=== PATIENT | male | born 1945 | race Caucasian/White ===

== ENCOUNTER 2016-10-25 09:52 | Emergency (ER) | payer MEDICARE, OTHER ==
[~2016-10-25 09:52] MED LIST: HYDR-3533 PO; IBUP600T26 PO; TAMS0.4C67 PO
[2016-10-25 09:58] VITALS: BP 117/93; PULSE 86; RESP 18; TEMP 97.8; O2SAT 97
--- NOTE | 2016-10-25 10:55 | PD ---
HPI Chief Complaint: Eye Problems/Injury Time Seen by Provider: 10:23 Travel History International Travel<30 days: No Contact w/Intl Traveler<30days: No Traveled to known affect area: No History of Present Illness HPI This patient complains of blurry vision in his left eye for 3 days. He describes a haze or film over his left visual field. He is not having eye pain and had no eye injury. His right vision is normal. He denies muscle weakness or sensory loss or speech slurring or any other neurologic complaint. Symptoms severity is mild to moderate. No alleviating factors. PFSH Past Medical History Diabetes: No Diminished Hearing: Yes (LT.EAR WORSE THAN RT.) Kidney Stones: Yes Immunizations Current: No Tetanus Vaccination: > 5 Years Influenza Vaccination: No Past Surgical History Neurologic Surgery: Yes (SKULL FX REPAIR) Other Surgery: Yes (HEMORHOID SURG.) Social History Alcohol Use: Yes (RARE) Tobacco Use: No (QUIT 1982 SMOKED FOR 30 YEARS ) Substance Use: No Allergies-Medications (Allergen,Severity, Reaction): Coded Allergies: No Known Allergies (Verified , 10/25/16) Uncoded Allergies: SOME TYPES OF CHEESES (Allergy, Mild, 06/10/08) Reported Meds & Prescriptions Reported Meds & Active Scripts Active No Active Prescriptions or Reported Medications Review of Systems General / Constitutional: No: Fever Eyes: Positive: Blurred Vision, Visual changes HENT: No: Headaches Cardiovascular: No: Chest Pain or Discomfort Respiratory: No: Cough Gastrointestinal: No: Vomiting Genitourinary: No: Dysuria Musculoskeletal: No: Arthralgias Physical Exam Narrative GENERAL: Well-nourished, well-developed patient. SKIN: Focused skin assessment warm/dry. HEAD: Normocephalic. EYES: No scleral icterus. No injection or drainage. Pupils are is normal. They 're equal round and reactive. Extraocular muscles are intact. Visual blankenship seem full. NECK: Supple, trachea midline. No JVD or lymphadenopathy. CARDIOVASCULAR: Regular rate and rhythm without murmurs, gallops, or rubs. RESPIRATORY: Breath sounds equal bilaterally. No accessory muscle use. GASTROINTESTINAL: Abdomen soft, non-tender, nondistended. MUSCULOSKELETAL: No cyanosis, or edema. NEUROLOGICAL: Awake and alert. Pupils are equal round and reactive. Motor and sensory grossly within normal limits. Five out of 5 muscle strength in all muscle groups. Normal speech. Data Data Last Documented VS Vital Signs Date Time Temp Pulse Resp B/P Pulse Ox O2 Delivery O2 Flow Rate FiO2 10/25/16 09:58 97.8 86 18 117/93 97 MDM Medical Decision Making Medical Screen Exam Complete: Yes Emergency Medical Condition: Yes Medical Record Reviewed: Yes Differential Diagnosis Vitreous hemorrhage, retinal detachment, cataract formation Narrative Course I have reviewed the patient's electronic medical record. I don't see evidence of CVA or neurologic deficit He describes left-sided visual changes I think the best thing for him right now is to get ophthalmology evaluation network manager has called and obtained an wardrobe stylist evaluation with Dr. Navas at 2 PM today Diagnosis Primary Impression: Blurry vision, left eye Additional Instructions: Follow-up with Dr. Navas at 2 PM Med/Other Pt SpecificInfo: Other Scripts No Active Prescriptions or Reported Meds Disposition: 01 DISCHARGE HOME Condition: Stable Danny Lopez MD Oct 25, 2016 10:55
== END 2016-10-25 11:23 | disposition home or self-care (01) ==
LOC: PHED 09:52
DX: H53.8 Other visual disturbances (principal); Z87.891 Personal history of nicotine dependence
CPT/HCPCS: 99282